=== PATIENT | male | born 1955 | race Caucasian/White ===

== ENCOUNTER 2016-05-28 05:23 | Day surgery (SDC) | payer OTHER ==
--- NOTE | ~2016-05-28 | EGD ---
EGD REPORT [facility] [address] [place] [address] NAME: ED LUNDBERG : [birth year] STATUS : REG [facility]#: [id number] AGE: 61 ADM/REG DATE : 05/28/16 MR#: [id number] REPORT SERV DATE: 05/28/16 DICTATED BY: JEANETTE KUMARI DATE: 05/28/16 REPORT STATUS : Draft TRANSCRIBED BY: [employer] DATE: 05/28/16 [facility] Patient Name: Ed Lundberg Date of : 1955 Attending MD: JEANETTE KUMARI MD Procedure Date No Time: 05/28/2016 Procedure: Colonoscopy Indications: High risk colon cancer surveillance: Personal history of colonic polyps Referring MD: RACHNA BASS MD Medicines: as per anesthesia Complications: No immediate complications. Procedure: Pre-Anesthesia Assessment: - ASA Grade Assessment: II - A patient with mild systemic disease. After I obtained informed consent, the scope was passed under direct vision. Throughout the procedure, the patient's blood pressure, pulse, and oxygen saturations were monitored continuously. The PCF [id number] was introduced through the anus and advanced to the cecum, identified by appendiceal orifice and ileocecal valve. The colonoscopy was performed without difficulty. The patient tolerated the procedure. The quality of the bowel preparation was adequate to identify polyps. Findings: The perianal and digital rectal examinations were normal. A few small and large-mouthed diverticula were found in the sigmoid colon, in the descending colon and in the transverse colon. Impression: - Diverticulosis in the sigmoid colon, in the descending colon and in the transverse colon. Recommendation: - Repeat colonoscopy in 5 years for surveillance. Procedure Code(s): --- Professional --- 94694, Colonoscopy, flexible, proximal to splenic flexure; diagnostic, with or without collection of specimen(s) by brushing or washing, with or without colon decompression (separate procedure) Diagnosis Code(s): --- Professional --- K57.30, Diverticulosis of large intestine without perforation or abscess without bleeding Z86.010, Personal history of colonic polyps EGD REPORT [place] [address] [place] [address] NAME: ED LUNDBERG : [birth year] STATUS : REG [facility]#: [id number] AGE: 61 ADM/REG DATE : 05/28/16 MR#: [id number] REPORT SERV DATE: 05/28/16 DICTATED BY: JEANETTE KUMARI. DATE: 05/28/16 REPORT STATUS : Draft TRANSCRIBED BY: [employer] SERVICES DATE: 05/28/16 CPT copyright 2013 [employer]. All rights reserved. The codes documented in this report are preliminary and upon rubber goods cutter finisher review may be revised to meet current compliance requirements. JEANETTE KUMARI MD 05/28/2016 9:58 AM This report has been signed electronically. Number of Addenda: 0 Note Initiated On: 05/28/2016 9:24 AM Scope Withdrawal Time 0 hours 0 minutes 0 seconds [address] [place] [address]
--- NOTE | ~2016-05-28 | EGD ---
EGD REPORT [facility] [address] [place] [address] NAME: ED LUNDBERG : [birth year] STATUS : REG [facility]#: [id number] AGE: 61 ADM/REG DATE : 05/28/16 MR#: [id number] REPORT SERV DATE: 05/28/16 DICTATED BY: JEANETTE KUMARI DATE: 05/28/16 REPORT STATUS : Draft TRANSCRIBED BY: [facility] DATE: 05/28/16 [facility] Patient Name: Ed Lundberg Date of : 1955 Attending MD: JEANETTE KUMARI MD Procedure Date No Time: 05/28/2016 Procedure: Upper GI endoscopy Indications: Dysphagia Referring MD: RACHNA BASS MD Medicines: as per anesthesia Complications: No immediate complications. Procedure: Pre-Anesthesia Assessment: - ASA Grade Assessment: II - A patient with mild systemic disease. After obtaining informed consent, the endoscope was passed under direct vision. Throughout the procedure, the patient's blood pressure, pulse, and oxygen saturations were monitored continuously. The GIF H190 [id number] was introduced through the mouth, and advanced to the third part of duodenum. The upper GI endoscopy was accomplished without difficulty. The patient tolerated the procedure. Findings: The examined esophagus was normal. The scope was withdrawn. Dilation was performed with a Finch dilator with no resistance at 44 Fr. The entire examined stomach was normal. The cardia and gastric fundus were normal on retroflexion. The examined duodenum was normal. Impression: - Normal esophagus. Dilated. - Normal stomach. - Normal examined duodenum. Recommendation: - Continue present medications. Procedure Code(s): --- Professional --- 70753, Esophagogastroduodenoscopy, flexible, transoral; diagnostic, including collection of specimen(s) by brushing or washing, when performed (separate procedure) 26063, Dilation of esophagus, by unguided sound or bougie, single or multiple passes Diagnosis Code(s): --- Professional --- R13.10, Dysphagia, unspecified EGD REPORT [facility] [address] [place] [address] NAME: ED LUNDBERG : [birth year] STATUS : REG [facility]#: [id number] AGE: 61 ADM/REG DATE : 05/28/16 MR#: [id number] REPORT SERV DATE: 05/28/16 DICTATED BY: JEANETTE KUMARI. DATE: 05/28/16 REPORT STATUS : Draft TRANSCRIBED BY: [employer] DATE: 05/28/16 CPT copyright 2013 [employer]. All rights reserved. The codes documented in this report are preliminary and upon sales engineer review may be revised to meet current compliance requirements. JEANETTE KUMARI MD 05/28/2016 9:40 AM This report has been signed electronically. Number of Addenda: 0 Note Initiated On: 05/28/2016 9:29 AM Scope Withdrawal Time 0 hours 0 minutes 0 seconds [address] [place] [address]
[~2016-05-28 05:23] MED LIST: FISH-EPA1000 MG PO; LEVOTHYROXIN100 MCG PO; MULTIPLE VIT PO; MULTIVIT/MIN PO; NEUR100 PO; VIT E PO; VITE PO; [UNRECOGNIZED DRUG - REMARK]
== END 2016-05-28 23:59 | disposition home or self-care (01) ==
LOC: DMU 05:23
PROVIDERS: Internal Medicine Gastroenterology
PROC: 0DJD8ZZ Inspection of Lower Intestinal Tract, Via Natural or Artificial Opening Endoscopic (ICD-10-PCS; principal; 2016-05-28 08:00)
PROC: 0D757ZZ Dilation of Esophagus, Via Natural or Artificial Opening (ICD-10-PCS; 2016-05-28 08:00)
PROC: 0DJ08ZZ Inspection of Upper Intestinal Tract, Via Natural or Artificial Opening Endoscopic (ICD-10-PCS; 2016-05-28 08:00)
DX: Z12.11 Encounter for screening for malignant neoplasm of colon (principal); K57.30 Diverticulosis of large intestine without perforation or abscess without bleeding; Z86.010 Personal history of colon polyps; Z79.899 Other long term (current) drug therapy